=== PATIENT | male | born 2000 | race Caucasian/White ===

== ENCOUNTER 2025-06-01 09:06 | Emergency (ER) | payer OTHER, SELFPAY ==
[2025-06-01 09:13] VITALS: BP 144/93
--- NOTE | 2025-06-01 10:41 | ED.GENMED ---
History of Present Illness
General
Chief Complaint: Headache
Source: patient
Exam Limitations: none
Time Seen by Provider: 06/01/25 10:14
History of Present Illness
History of Present Illness:
Patient with about a 5-second episode of difficulty with speech, funny feeling to the right side of his lip and some twitching. Twitching of the eyelids. Had a mild headache this morning but gets occasional headaches. This was bitemporal. This
was not unusual. He has had 4-5 episodes similarly over the last few years. Last episode was 6 months ago. Currently feels fine. His friends stated he was having significant issues with his speech during this brief episode. He has a lump to the
left forehead he has had for a long time. He is concerned this may be involved
Past History
Past History
ED Past Medical History: Asthma
ED Past Surgical History: Tonsilectomy
Social History
Tobacco: Smoker
Alcohol: Occasional
Drug: None
Personal: Single
Living: with family
Employment: Employed
Review of Systems
Review of Systems
All Other Systems: Not applicable
Constitutional: Denies fever or chills
Neurological: Denies dizzy or weakness
Phy Exam
Physical Exam
Physical Exam:
GENERAL: Alert and oriented in no apparent distress. Small 1 cm fluctuant cystic mass subcutaneously at the scalp line to the left forehead. No erythema or drainage
EYE: Orbits normal.
NECK: Supple, no significant adenopathy.
ENT: Pharynx without erythema
CARDIAC: Regular rate and rhythm without any obvious murmurs.
LUNGS: Clear breath sounds,normal
ABDOMEN: Soft, without focal tenderness or distention
NEUROLOGICAL: Alert and oriented , cranial nerves II through XII intact. Speech normal. [id number] normal. Extraocular muscles intact.
SKIN: Warm and dry, no rash or lesion, no discoloration, skin intact.
MUSCULOSKELETAL: No edema,no deformity.Good color
PSYCH: Normal and appropriate interaction.
Course
Vital Signs
Initial and Last Documented VS:
Initial Vital Signs
Temp Pulse Resp BP Pulse Ox
98 F 71 20 144/93 99
06/01/25 09:13 06/01/25 09:13 06/01/25 09:13 06/01/25 09:13 06/01/25 09:13
Last Documented Vital Signs
Temp Pulse Resp BP Pulse Ox
98 F 71 20 144/93 99
06/01/25 09:13 06/01/25 09:13 06/01/25 09:13 06/01/25 09:13 06/01/25 10:43
MDM/Problems Addressed
Differential Diagnosis Includes:
Patient is describing a partial seizure. Very concerned about finances. Basic labs are highly unlikely to add value. Will ask neurology opinion before ordering test.
*Pulse Oximetry
SaO2: 99
Oxygen Mode of Delivery: Room air
Patient hypoxic: no (99)
*Critical Care Note
Total Time (30-74mins, 75-104mins- exclusive of procedures): Not Applicable
Data Reviewed
Review of Other/Old Records Reveals: Labs, Records and Testing
Update Note
Update Note:
Patient seen by neurology. They agree MRI is the main beneficial test. We recommended this to the patient. He does not want this test done at this time. He is aware of the risk. He states he will follow-up. He has no loss of consciousness
during these episodes. No antiepileptics per neurology. And patient is okay to drive per neurology.
ED Attending Note
-
Portions of this chart may have been created with voice recognition software.� Occasional wrong word or��sound alike� substitutions may have occurred due to the inherent limitations of voice recognition software.
Discharge Plan
Departure
Patient Disposition: Home (Routine Discharge)
Date of Disposition: 06/01/25
Time of Disposition: 12:58
Patient with high blood pressure during this ER visit?: Yes
Discharge Problem:
Simple partial seizure
Instructions: Seizures in adults - ED discharge instructions, BLOOD PRESSURE
Prescriptions:
No Action
albuterol sulfate [Proventil HFA] 90 MCG/PUFF HFA aerosol inhaler
2 puff inhalation Q4HPRN PRN (Reason: shortness of breath) Qty: 1 0RF
ibuprofen 600 mg tablet
600 mg PO Q8H PRN (Reason: Pain) Qty: 20 0RF
ondansetron 4 mg tablet,disintegrating
4 mg PO Q8H PRN (Reason: nausea and vomiting) Qty: 10 0RF
Referrals:
Marley Curran DO [Family Provider, Family Practice]
Activity Restrictions/Additional Instructions:
Follow-up closely with your primary physician
You absolutely should get an outpatient MRI to rule out more serious etiology
Interventions
Interventions:
*Risk Screen - Suicide Last Done: 06/01/25 09:13
*General Assessment Last Done: 06/01/25 09:13
*Neglect/Abuse Screening Last Done: 06/01/25 09:13
*Nursing Disposition Last Done: 06/01/25 13:14
ED- Neurological Assessment Last Done: 06/01/25 11:17
Discharge Date and Time
Discharge Date/Time: 06/01/25 13:15
Print Language: LUX[place]
--- NOTE | 2025-06-01 14:04 | CON.NEURO ---
Neuro Assessment/Plan
Assessment
most likely simple partial seizure ('only an aura') given sequence of events, probably left temporal
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
recommended brain MRI, ideally with and w/o contrast to rule out brain tumors, and routine EEG for completeness though patient concerned about cost and defers for now.
as this has been going on >2 years, ok to drive
ok to discharge home, outpatient follow up
Consultation
Order
Date of Consultation: 06/01/25
Requesting Provider:
Reason for Consult:
Subjective/Objective
Subjective Data
Date of Service: June 01, 2025
24 year old man with paroxysmal event, 4-5 episodes over the past 2 years. occurred today right lip numbness, weakness-->aphasia-->presyncope, out of body feeling. lasts ~5 seconds. no LOC, no convulsions. previous episodes included just the
presyncope/out of body feeling.
patient concerned about cost of care and didn't get head CT
Objective Data
Vital Signs
Temp Pulse Resp BP Pulse Ox
36.6 C 71 20 144/93 99
06/01/25 09:13 06/01/25 09:13 06/01/25 09:13 06/01/25 09:13 06/01/25 10:43
Patient Allergies
montelukast (From Singulair) Allergy (Verified 06/01/25 09:18)
Rash
Physical Exam
-
AAOx3, speech clear, language intact
right nasolabial flattening
loss of dominance
Medications
-
Home Medications
�Medication �Instructions �Recorded
albuterol sulfate 90 mcg/actuation 2 puff inhalation Q4HPRN PRN 08/08/18
aerosol inhaler (Proventil HFA) shortness of breath ##1
ibuprofen 600 mg tablet 600 mg PO Q8H PRN Pain #20 tabs 09/08/23
ondansetron 4 mg disintegrating 4 mg PO Q8H PRN nausea and 09/08/23
tablet vomiting #10 tabs
== END 2025-06-01 13:15 | disposition home or self-care (01) ==
LOC: EMR 09:06
PROVIDERS: EMERGENCY PHYSICIAN Emergency Medicine; FAMILY PHYSICIAN Internal Medicine; OTHER PHYSICIAN Psychiatry & Neurology Clinical Neurophysiology
DX: R56.9 Unspecified convulsions (principal); F17.200 Nicotine dependence, unspecified, uncomplicated
CPT/HCPCS: 99282